=== PATIENT | male | born 1995 | race Caucasian/White ===

== ENCOUNTER 2016-11-07 19:52 | Emergency (ER) | payer OTHER ==
[2016-11-07 20:52] LABS: HEMOGLOBIN 15.7 gm/dl (14.0-17.5); RED BLOOD COUNT 5.53 M/UL (4.20-5.50); WHITE BLOOD COUNT 7.6 K/UL (4.5-11.0)
[2016-11-07 21:12] LABS: BUN/CREATININE RATIO 17 (0-10)
== END 2016-11-08 15:42 | disposition short-term general hospital (02) ==
LOC: ER1 19:52
PROVIDERS: Student in an Organized Health Care Education/Training Program
DX: T39.1X2A Poisoning by 4-Aminophenol derivatives, intentional self-harm, initial encounter (principal); F32.9 Major depressive disorder, single episode, unspecified; Z88.0 Allergy status to penicillin; Z88.6 Allergy status to analgesic agent; Z79.899 Other long term (current) drug therapy
CPT/HCPCS: 36415; 71010; 80053; 80307; 81001; 82550; 82553; 83735; 83874; 84484; 85025; 93005; 96360; 99285; G0480